=== PATIENT | male | born 1965 ===

== ENCOUNTER 2020-06-08 16:37 | Inpatient (IN) ==
[2020-06-08] MEDS ORDERED: hydrALAZINE 20 MG/1 ML VIAL IV ONE (19:49)
[2020-06-08] MEDS ORDERED: hydrALAZINE 20 MG/1 ML VIAL IV PRN (19:49)
[2020-06-08] MEDS ORDERED: GLUCAGON 1 MG VIAL IM PRN ×2 (19:55→19:57)
[2020-06-08] MEDS ORDERED: DEXTROSE 50% 25 GM/50 ML VIAL IV PRN (19:57)
[2020-06-08] MEDS ORDERED: ONDANSETRON 4 MG/2 ML VIAL IV PRN (19:57)
[2020-06-08] MEDS ORDERED: ACETAMINOPHEN 325 MG TABLET PO PRN (19:57)
[2020-06-08] MEDS: DEXTROSE 50% 25 GM/50 ML VIAL IV PRN ×2 (20:14→22:38)
[2020-06-08] MEDS: ENOXAPARIN 30 MG/0.3 ML SYRINGE SUBCUT SCH (22:38)
[2020-06-08] MEDS: DEXTROSE 5% NACL 0.45% 1,000 ML IV SCH (22:39)
[2020-06-09] MEDS: DEXTROSE 50% 25 GM/50 ML VIAL IV PRN ×10 (00:17→20:57)
[2020-06-09 02:36] LABS: Bacteria,Urine Moderate /HPF (Few); Bilirubin,Urine Negative (Negative); Blood, Urine Small mg/dL (Negative); Glucose,Urine (UA) 50 mg/dL (Negative); Ketones,Urine Negative (Negative); Nitrite,Urine Negative (Negative); Protein,Urine >=500 MG/DL; RBC,Urine 4 /HPF (0-4); Squamous Epithelial Cell,Urine Occasional /HPF (0-10); Urine Appearance CLOUDY (Clear); Urine Color Yellow (Yellow); Urine Specific Gravity 1.014 (1.001-1.035); Urine Urobilinogen < 2.0 EU/DL (0.2-1.0); WBC,Urine 14 /HPF (0-6)
[2020-06-09 03:45] LABS: Protein/Creatinine Ratio,Urine 7.1 RATIO
[2020-06-09] MEDS: DEXTROSE 10% 1,000 ML IV SCH ×2 (05:00→21:34)
[2020-06-09 05:56] LABS: Basophils % 0.4 % (0.0-0.8); Eosinophils # 0.2 10*3/uL (0.0-0.87); Eosinophils % 1.4 % (0.00-10.9); Hematocrit 23.6 VOL% (42.0-52.0); Immature Granulocytes % 1.2 %; Immature Granulocytes Absolute 0.13 #; Lymphocytes # 0.7 10*3/uL (1.4-4.0); Lymphocytes % 5.9 % (21.2-54.2); Mean Corpuscular HGB Conc 33.9 GM/DL (32-36); Mean Corpuscular Volume 91.1 FL (87-102); Mean Platelet Volume 9.4 FL (9.6-12.0); Monocytes % 8.3 % (1.7-12.7); Neutrophils % 82.8 % (38.7-73.9); Platelet Count 164 T/CUMM (130-400); Red Blood Count 2.59 MC/CUMM (3.8-5.5); Red Cell Distribution Width 13.6 % (9.3-17.3); White Blood Count 11.3 T/CUMM (4-12)
[2020-06-09 06:20] LABS: Albumin 1.9 G/DL (3.4-5.0); Bilirubin,Total 0.8 MG/DL (0.2-1.0); Calcium 6.9 MG/DL (8.5-10.1); Osmolality,Calculated 283.5 MOS/KG (273-304); Total Protein 5.7 G/DL (6.4-8.3)
[2020-06-09] MEDS: DEXTROSE 5% NACL 0.45% 1,000 ML IV SCH (07:41)
[2020-06-09] MEDS: PANTOPRAZOLE 40 MG TABLET PO SCH (09:49)
[2020-06-09] MEDS: hydrALAZINE 25 MG TABLET PO SCH ×3 (11:43→21:30)
[2020-06-09] MEDS ORDERED: POTASSIUM CHLORIDE 20 MEQ/15 ML UDCUP PO ONE (18:11)
[2020-06-09] MEDS: ENOXAPARIN 30 MG/0.3 ML SYRINGE SUBCUT SCH (21:30)
[2020-06-10 05:56] LABS: Basophils % 0.2 % (0.0-0.8); Eosinophils # 0.3 10*3/uL (0.0-0.87); Eosinophils % 2.2 % (0.00-10.9); Hematocrit 26.9 VOL% (42.0-52.0); Hemoglobin 9.2 GM/DL (14.0-18.0); Immature Granulocytes % 0.8 %; Immature Granulocytes Absolute 0.12 #; Lymphocytes % 6.7 % (21.2-54.2); Mean Corpuscular HGB Conc 34.2 GM/DL (32-36); Mean Corpuscular Volume 91.8 FL (87-102); Mean Platelet Volume 10.1 FL (9.6-12.0); Monocytes % 8.9 % (1.7-12.7); Neutrophils % 81.2 % (38.7-73.9); Platelet Count 227 T/CUMM (130-400); Red Blood Count 2.93 MC/CUMM (3.8-5.5); Red Cell Distribution Width 13.4 % (9.3-17.3); White Blood Count 14.3 T/CUMM (4-12)
[2020-06-10 06:26] LABS: Calcium 7.1 MG/DL (8.5-10.1); Osmolality,Calculated 276.2 MOS/KG (273-304)
[2020-06-10] MEDS: DEXTROSE 10% 1,000 ML IV SCH (08:21)
[2020-06-10] MEDS: SODIUM BICARB INJ 100 MEQ in DEXTROSE 5% 1,000 ML IV SCH ×2 (09:19→21:58)
[2020-06-10] MEDS: hydrALAZINE 25 MG TABLET PO SCH ×3 (09:21→21:57)
[2020-06-10] MEDS: PANTOPRAZOLE 40 MG TABLET PO SCH (09:22)
[2020-06-10] MEDS: ENOXAPARIN 30 MG/0.3 ML SYRINGE SUBCUT SCH (21:57)
[2020-06-11 05:36] LABS: Basophils % 0.3 % (0.0-0.8); Eosinophils # 0.2 10*3/uL (0.0-0.87); Eosinophils % 1.8 % (0.00-10.9); Hematocrit 23.2 VOL% (42.0-52.0); Immature Granulocytes Absolute 0.11 #; Lymphocytes # 0.8 10*3/uL (1.4-4.0); Lymphocytes % 7.8 % (21.2-54.2); Mean Corpuscular HGB Conc 34.5 GM/DL (32-36); Mean Platelet Volume 9.3 FL (9.6-12.0); Monocytes % 11.7 % (1.7-12.7); Neutrophils % 77.4 % (38.7-73.9); Platelet Count 182 T/CUMM (130-400); Red Blood Count 2.55 MC/CUMM (3.8-5.5); Red Cell Distribution Width 13.2 % (9.3-17.3); White Blood Count 10.8 T/CUMM (4-12)
[2020-06-11 06:23] LABS: Calcium 7.3 MG/DL (8.5-10.1); Osmolality,Calculated 272.8 MOS/KG (273-304)
[2020-06-11] MEDS ORDERED: POTASSIUM CHLORIDE 20 MEQ TABLET PO PRN (06:55)
[2020-06-11] MEDS: SODIUM BICARB INJ 100 MEQ in DEXTROSE 5% 1,000 ML IV SCH (07:04)
[2020-06-11] MEDS: hydrALAZINE 25 MG TABLET PO SCH ×3 (08:17→21:19)
[2020-06-11] MEDS: PANTOPRAZOLE 40 MG TABLET PO SCH (08:17)
[2020-06-11] MEDS: SODIUM BICARB INJ 150 MEQ in DEXTROSE 5% 850 ML IV SCH (16:21)
[2020-06-11] MEDS: ENOXAPARIN 30 MG/0.3 ML SYRINGE SUBCUT SCH (21:19)
[2020-06-12 06:17] LABS: Basophils % 0.2 % (0.0-0.8); Eosinophils # 0.1 10*3/uL (0.0-0.87); Eosinophils % 1.1 % (0.00-10.9); Hematocrit 20.6 VOL% (42.0-52.0); Hemoglobin 7.3 GM/DL (14.0-18.0); Immature Granulocytes % 0.8 %; Immature Granulocytes Absolute 0.09 #; Lymphocytes # 0.8 10*3/uL (1.4-4.0); Lymphocytes % 7.1 % (21.2-54.2); Mean Corpuscular HGB Conc 35.4 GM/DL (32-36); Mean Corpuscular Volume 88.8 FL (87-102); Mean Platelet Volume 9.4 FL (9.6-12.0); Monocytes % 12.9 % (1.7-12.7); Neutrophils % 77.9 % (38.7-73.9); Platelet Count 170 T/CUMM (130-400); Red Blood Count 2.32 MC/CUMM (3.8-5.5); White Blood Count 10.7 T/CUMM (4-12)
[2020-06-12 06:45] LABS: Calcium 7.2 MG/DL (8.5-10.1); Osmolality,Calculated 275.8 MOS/KG (273-304)
[2020-06-12] MEDS: SODIUM BICARB INJ 150 MEQ in DEXTROSE 5% 850 ML IV SCH ×2 (08:08→18:30)
[2020-06-12] MEDS: hydrALAZINE 25 MG TABLET PO SCH ×2 (08:12→20:58)
[2020-06-12] MEDS: PANTOPRAZOLE 40 MG TABLET PO SCH (08:14)
[2020-06-12] MEDS ORDERED: SODIUM CHLORIDE 0.9% 1,000 ML IV PRN ×2 (08:29→08:30)
[2020-06-12] MEDS: ENOXAPARIN 30 MG/0.3 ML SYRINGE SUBCUT SCH (20:58)
[2020-06-13] MEDS: SODIUM BICARB INJ 150 MEQ in DEXTROSE 5% 850 ML IV SCH ×2 (01:28→21:07)
[2020-06-13 06:39] LABS: Calcium 6.9 MG/DL (8.5-10.1); Osmolality,Calculated 284.4 MOS/KG (273-304)
[2020-06-13] MEDS: PANTOPRAZOLE 40 MG TABLET PO SCH (09:10)
[2020-06-13] MEDS: hydrALAZINE 25 MG TABLET PO SCH ×2 (09:11→21:07)
[2020-06-13] MEDS: ENOXAPARIN 30 MG/0.3 ML SYRINGE SUBCUT SCH (21:07)
[2020-06-14 06:42] LABS: Basophils % 0.1 % (0.0-0.8); Eosinophils # 0.3 10*3/uL (0.0-0.87); Hematocrit 24.6 VOL% (42.0-52.0); Hemoglobin 8.6 GM/DL (14.0-18.0); Immature Granulocytes % 0.8 %; Immature Granulocytes Absolute 0.07 #; Lymphocytes # 0.8 10*3/uL (1.4-4.0); Mean Corpuscular Volume 89.1 FL (87-102); Mean Platelet Volume 9.7 FL (9.6-12.0); Monocytes % 13.4 % (1.7-12.7); Neutrophils % 72.7 % (38.7-73.9); Platelet Count 191 T/CUMM (130-400); Red Blood Count 2.76 MC/CUMM (3.8-5.5); Red Cell Distribution Width 13.2 % (9.3-17.3); White Blood Count 8.3 T/CUMM (4-12)
[2020-06-14 07:00] LABS: Calcium 6.7 MG/DL (8.5-10.1); Osmolality,Calculated 287.2 MOS/KG (273-304)
[2020-06-14] MEDS ORDERED: POTASSIUM CHLORIDE 20 MEQ TABLET PO ONE (08:32)
[2020-06-14] MEDS: hydrALAZINE 25 MG TABLET PO SCH ×2 (10:48→21:20)
[2020-06-14] MEDS: PANTOPRAZOLE 40 MG TABLET PO SCH (10:48)
[2020-06-14] MEDS: SODIUM BICARB INJ 150 MEQ in DEXTROSE 5% 850 ML IV SCH ×2 (10:49)
[2020-06-14] MEDS: ENOXAPARIN 30 MG/0.3 ML SYRINGE SUBCUT SCH (21:20)
[2020-06-15] MEDS: SODIUM BICARB INJ 150 MEQ in DEXTROSE 5% 850 ML IV SCH
[2020-06-15 06:01] LABS: Basophils % 0.1 % (0.0-0.8); Eosinophils # 0.4 10*3/uL (0.0-0.87); Eosinophils % 5.1 % (0.00-10.9); Hematocrit 26.4 VOL% (42.0-52.0); Hemoglobin 9.3 GM/DL (14.0-18.0); Immature Granulocytes % 0.6 %; Immature Granulocytes Absolute 0.05 #; Lymphocytes % 10.9 % (21.2-54.2); Mean Corpuscular HGB Conc 35.2 GM/DL (32-36); Mean Corpuscular Volume 89.2 FL (87-102); Mean Platelet Volume 9.1 FL (9.6-12.0); Monocytes % 10.1 % (1.7-12.7); Neutrophils % 73.2 % (38.7-73.9); Platelet Count 213 T/CUMM (130-400); Red Blood Count 2.96 MC/CUMM (3.8-5.5); Red Cell Distribution Width 12.9 % (9.3-17.3); White Blood Count 8.7 T/CUMM (4-12)
[2020-06-15] MEDS ORDERED: POTASSIUM CHLORIDE 10 MEQ TABLET PO ONE (07:59)
[2020-06-15] MEDS: hydrALAZINE 25 MG TABLET PO SCH (08:28)
[2020-06-15] MEDS: PANTOPRAZOLE 40 MG TABLET PO SCH (08:28)
[2020-06-15] MEDS ORDERED: SODIUM BICARBONATE 650 MG TABLET PO SCH (17:00)
[2020-06-15 17:26] VITALS: BP 166/89
== END 2020-06-15 18:30 | disposition home or self-care (01) | DRG 684 ==
LOC: N.4E → SUATTDRO 19:58
PROVIDERS: ADMIT Internal Medicine; ATTEND Internal Medicine

== ENCOUNTER 2020-07-09 15:47 | Inpatient (IN) ==
[2020-07-09] MEDS ORDERED: PNEUMOCOCCAL VACCINE (13 VALENT) 0.5 ML SYRINGE IM ONE (18:15)
[2020-07-09] MEDS ORDERED: INFLUENZA VIRUS VACCINE 0.5 ML SYRINGE IM ONE (18:15)
[2020-07-09] MEDS ORDERED: DEXTROSE 50% 25 GM/50 ML VIAL IV PRN (19:02)
[2020-07-09] MEDS ORDERED: ONDANSETRON 4 MG/2 ML VIAL IV PRN (19:02)
[2020-07-09] MEDS ORDERED: GLUCAGON 1 MG VIAL IM PRN (19:02)
[2020-07-09 19:35] LABS: Basophils # 0.1 10*3/uL (0.0-0.2); Basophils % 0.3 % (0.0-0.8); Eosinophils # 0.4 10*3/uL (0.0-0.87); Eosinophils % 2.3 % (0.00-10.9); Hematocrit 23.3 VOL% (42.0-52.0); Hemoglobin 8.1 GM/DL (14.0-18.0); Immature Granulocytes % 6.2 %; Immature Granulocytes Absolute 0.94 #; Lymphocytes % 6.4 % (21.2-54.2); Mean Corpuscular HGB Conc 34.8 GM/DL (32-36); Mean Corpuscular Volume 88.6 FL (87-102); Monocytes % 7.1 % (1.7-12.7); Neutrophils % 77.7 % (38.7-73.9); Platelet Count 195 T/CUMM (130-400); Red Blood Count 2.63 MC/CUMM (3.8-5.5); Red Cell Distribution Width 14.5 % (9.3-17.3); White Blood Count 15.2 T/CUMM (4-12)
[2020-07-09 19:38] LABS: PT Patient Result 11.1 SECS (9.8-11.9)
[2020-07-09 19:53] LABS: Alanine Aminotransferase < 9 U/L (16-61); Albumin 2.3 G/DL (3.4-5.0); Alkaline Phosphatase 80 U/L (45-117); Aspartate Amino Transferase 13 U/L (0-37); Bilirubin,Total < 0.39 MG/DL (0.2-1.0); Blood Urea Nitrogen 77 MG/DL (7-18); Calcium 6.2 MG/DL (8.5-10.1); Estimated Glom Filtration Rate 3 ML/MIN; Glucose 104 MG/DL (74-106); Osmolality,Calculated 295.8 MOS/KG (273-304); Total Protein 7.4 G/DL (6.4-8.3)
[2020-07-09 20:15] LABS: Eosinophils 1 % (0-10); Lymphocytes 11 % (20-55); Segmented Neutrophils 85 % (50-85); Total Cells Counted 100
[2020-07-09 20:16] LABS: Toxic Granulation 2+
[2020-07-09 20:17] LABS: Anisocytosis 1+; Platelet Estimate Normal
[2020-07-09 20:19] LABS: Folate 6.3 NG/ML (5.4-24.0); Vitamin B12 411 PG/ML (211-911)
[2020-07-09 20:48] LABS: Sedimentation Rate-Westergren 137 MM/HR (0-20)
[2020-07-09] MEDS: PANTOPRAZOLE 40 MG VIAL IV SCH (21:25)
[2020-07-09] MEDS: POTASSIUM CHLORIDE RIDER 10 MEQ in PREMIX 1 EACH IV PRN ×2 (21:49→23:43)
[2020-07-09] MEDS: SODIUM CHLORIDE 0.9% 1,000 ML IV SCH (21:49)
[2020-07-10] MEDS: INSULIN LISPRO 100 UNIT/ML SUBCUT SCH ×5 (02:18→21:07)
[2020-07-10 02:52] LABS: Basophils % 0.3 % (0.0-0.8); Eosinophils # 0.4 10*3/uL (0.0-0.87); Eosinophils % 2.6 % (0.00-10.9); Hemoglobin 7.5 GM/DL (14.0-18.0); Immature Granulocytes % 6.3 %; Immature Granulocytes Absolute 0.88 #; Lymphocytes # 0.9 10*3/uL (1.4-4.0); Lymphocytes % 6.4 % (21.2-54.2); Mean Corpuscular HGB Conc 34.1 GM/DL (32-36); Mean Corpuscular Volume 90.5 FL (87-102); Mean Platelet Volume 9.5 FL (9.6-12.0); Monocytes % 8.5 % (1.7-12.7); NRBC # 0.02 10*3/uL; Neutrophils % 75.9 % (38.7-73.9); Platelet Count 187 T/CUMM (130-400); Red Blood Count 2.43 MC/CUMM (3.8-5.5); Red Cell Distribution Width 14.6 % (9.3-17.3)
[2020-07-10 02:57] LABS: Bilirubin,Total 0.5 MG/DL (0.2-1.0); Calcium 6.1 MG/DL (8.5-10.1); Osmolality,Calculated 299.7 MOS/KG (273-304); Risk Ratio 1.42; Thyroid Stimulating Hormone 1.5 uIU/ml (0.358-3.74); Total Protein 6.7 G/DL (6.4-8.3); VLDL CHOLESTEROL 11.4 MG/DL
[2020-07-10] MEDS: SODIUM CHLORIDE 0.9% 1,000 ML IV SCH (04:22)
[2020-07-10] MEDS: POTASSIUM CHLORIDE RIDER 10 MEQ in PREMIX 1 EACH IV PRN ×7 (04:22→16:57)
[2020-07-10 04:41] LABS: Eosinophils 4 % (0-10); Lymphocytes 6 % (20-55); Myelocytes 1 %; Segmented Neutrophils 84 % (50-85); Total Cells Counted 100
[2020-07-10 04:43] LABS: Hypochromasia Slight; Microcytosis 1+; Ovalocytes Slight; Platelet Estimate Adequate
[2020-07-10] MEDS: PANTOPRAZOLE 40 MG VIAL IV SCH ×2 (09:31→21:50)
[2020-07-10] MEDS: SODIUM BICARB INJ 50 MEQ in DEXTROSE 5% 1,000 ML IV SCH ×2 (10:45→21:16)
[2020-07-10] MEDS ORDERED: GLUCAGON 1 MG VIAL IM PRN (10:50)
[2020-07-10] MEDS ORDERED: DEXTROSE 50% 25 GM/50 ML VIAL IV PRN (10:50)
[2020-07-10 10:54] LABS: Hepatitis B Core IgM Quant 0.06 Index; Hepatitis B Surface Ag Quant < 0.10 Index; Hepatitis B Surface Ag Result Negative (Negative); Hepatitis C Virus Ab Quant 0.05 Index; Hepatitis C Virus Ab Result Negative (Negative)
[2020-07-10] MEDS ORDERED: ceFAZolin 1,000 MG in SYRINGE 1 EACH IV ONE (12:15)
[2020-07-10 13:37] LABS: Bilirubin,Urine Negative (Negative); Blood, Urine Negative (Negative); Glucose,Urine (UA) 150 mg/dL (Negative); Ketones,Urine Negative (Negative); Mucus,Urine Occasional /LPF (Occasional); Nitrite,Urine Negative (Negative); Protein,Urine >=500 MG/DL; RBC,Urine 2 /HPF (0-4); Squamous Epithelial Cell,Urine Occasional /HPF (0-10); Urine Appearance CLOUDY (Clear); Urine Color Yellow (Yellow); Urine Specific Gravity 1.014 (1.001-1.035); Urine Urobilinogen < 2.0 EU/DL (0.2-1.0); WBC,Urine 23 /HPF (0-6)
[2020-07-10] MEDS: VANCOMYCIN 50 MG/ML 60 ML/BOTTLE PO SCH ×2 (15:45→18:16)
[2020-07-11] MEDS: VANCOMYCIN 50 MG/ML 60 ML/BOTTLE PO SCH ×4 (00:12→18:50)
[2020-07-11] MEDS ORDERED: ceFAZolin 1,000 MG in SYRINGE 1 EACH IV ONE (06:00)
[2020-07-11 06:06] LABS: Basophils # 0.1 10*3/uL (0.0-0.2); Basophils % 0.4 % (0.0-0.8); Eosinophils # 0.4 10*3/uL (0.0-0.87); Eosinophils % 2.4 % (0.00-10.9); Hematocrit 20.3 VOL% (42.0-52.0); Hemoglobin 6.9 GM/DL (14.0-18.0); Immature Granulocytes % 5.2 %; Lymphocytes # 0.8 10*3/uL (1.4-4.0); Lymphocytes % 5.2 % (21.2-54.2); Mean Corpuscular Volume 90.6 FL (87-102); Mean Platelet Volume 9.7 FL (9.6-12.0); Neutrophils % 79.8 % (38.7-73.9); Platelet Count 153 T/CUMM (130-400); Red Blood Count 2.24 MC/CUMM (3.8-5.5); Red Cell Distribution Width 14.6 % (9.3-17.3); White Blood Count 15.3 T/CUMM (4-12)
[2020-07-11 06:34] LABS: Calcium 5.9 MG/DL (8.5-10.1); Osmolality,Calculated 295.1 MOS/KG (273-304)
[2020-07-11] MEDS ORDERED: MIDAZOLAM 2 MG/2 ML VIAL ONE (06:37)
[2020-07-11] MEDS ORDERED: fentaNYL 100 MCG/2 ML VIAL ONE (06:37)
[2020-07-11] MEDS ORDERED: SODIUM CHLORIDE 0.9% 100 ML IV ONE (06:37)
[2020-07-11] MEDS ORDERED: LIDOCAINE 2% 5 ML VIAL ONE (06:37)
[2020-07-11] MEDS ORDERED: propofoL 200 MG/20 ML VIAL IV ONE (06:37)
[2020-07-11] MEDS ORDERED: LIDOCAINE 1% 20 ML VIAL ONE (06:47)
[2020-07-11] MEDS ORDERED: HEPARIN 5,000 UNIT/1 ML VIAL ONE (06:47)
[2020-07-11] MEDS ORDERED: BUPIVACAINE MPF 0.25% 30 ML VIAL ONE (06:47)
[2020-07-11 07:08] LABS: Burr Cells Few; Ovalocytes Few; Platelet Estimate Adequate; Polychromasia Slight
[2020-07-11] MEDS: INSULIN LISPRO 100 UNIT/ML SUBCUT SCH ×4 (07:24→21:15)
[2020-07-11] MEDS ORDERED: SODIUM CHLORIDE 0.9% 250 ML IV ONE (07:47)
[2020-07-11] MEDS ORDERED: ceFAZolin 1,000 MG VIAL ONE (07:55)
[2020-07-11] MEDS ORDERED: TISSUE ADHESIVE 1 EACH APPLICATOR TOP ONE (08:16)
[2020-07-11] MEDS ORDERED: POTASSIUM CHLORIDE 20 MEQ TABLET PO ONE (09:51)
[2020-07-11] MEDS: POTASSIUM CHLORIDE RIDER 10 MEQ in PREMIX 1 EACH IV PRN ×2 (10:08→22:33)
[2020-07-11] MEDS: PANTOPRAZOLE 40 MG VIAL IV SCH ×2 (10:09→22:32)
[2020-07-11] MEDS: SODIUM BICARB INJ 50 MEQ in DEXTROSE 5% 1,000 ML IV SCH (10:27)
[2020-07-11] MEDS ORDERED: HEPARIN 10,000 UNIT/10 ML VIAL IV SCH (13:15)
[2020-07-11] MEDS: DEXTROSE 5% IV SCH (17:59)
[2020-07-11] MEDS: SODIUM ACETATE IV SCH (17:59)
[2020-07-11] MEDS: hydrALAZINE 20 MG/1 ML VIAL IV PRN (18:23)
[2020-07-12] MEDS: VANCOMYCIN 50 MG/ML 60 ML/BOTTLE PO SCH ×4 (00:53→17:20)
[2020-07-12] MEDS: POTASSIUM CHLORIDE RIDER 10 MEQ in PREMIX 1 EACH IV PRN ×4 (03:22→14:53)
[2020-07-12] MEDS: DEXTROSE 5% IV SCH (03:31)
[2020-07-12] MEDS: SODIUM ACETATE IV SCH (03:31)
[2020-07-12 06:23] LABS: Basophils % 0.3 % (0.0-0.8); Eosinophils # 0.3 10*3/uL (0.0-0.87); Eosinophils % 2.9 % (0.00-10.9); Hematocrit 22.1 VOL% (42.0-52.0); Hemoglobin 7.6 GM/DL (14.0-18.0); Immature Granulocytes % 2.5 %; Immature Granulocytes Absolute 0.27 #; Lymphocytes # 0.5 10*3/uL (1.4-4.0); Lymphocytes % 4.7 % (21.2-54.2); Mean Corpuscular HGB Conc 34.4 GM/DL (32-36); Mean Corpuscular Volume 87.4 FL (87-102); Mean Platelet Volume 9.8 FL (9.6-12.0); Monocytes % 8.4 % (1.7-12.7); Neutrophils % 81.2 % (38.7-73.9); Platelet Count 151 T/CUMM (130-400); Red Blood Count 2.53 MC/CUMM (3.8-5.5); White Blood Count 10.9 T/CUMM (4-12)
[2020-07-12 06:57] LABS: Calcium 5.7 MG/DL (8.5-10.1)
[2020-07-12] MEDS: PANTOPRAZOLE 40 MG VIAL IV SCH ×2 (08:43→21:27)
[2020-07-12] MEDS: INSULIN LISPRO 100 UNIT/ML SUBCUT SCH ×4 (08:44→21:28)
[2020-07-12] MEDS ORDERED: MAGNESIUM SULF RIDER 2 GM in PREMIX 1 EACH IV ONE (08:57)
[2020-07-12 08:59] LABS: Eosinophils 2 % (0-10); Lymphocytes 6 % (20-55); Platelet Estimate Adequate; Segmented Neutrophils 86 % (50-85); Total Cells Counted 100
[2020-07-12] MEDS: CALCIUM (CARBONATE) 500 MG TABLET PO SCH ×2 (12:21→21:27)
[2020-07-12] MEDS: hydrALAZINE 20 MG/1 ML VIAL IV PRN ×2 (13:32→21:28)
[2020-07-12] MEDS ORDERED: LOPERAMIDE 2 MG CAPSULE PO PRN (14:28)
[2020-07-13] MEDS: VANCOMYCIN 50 MG/ML 60 ML/BOTTLE PO SCH ×5 (00:12→23:34)
[2020-07-13] MEDS: SODIUM ACETATE IV SCH ×4 (00:23→21:48)
[2020-07-13] MEDS: DEXTROSE 5% IV SCH ×4 (00:23→21:48)
[2020-07-13] MEDS: POTASSIUM CHLORIDE RIDER 10 MEQ in PREMIX 1 EACH IV PRN ×8 (00:24→23:34)
[2020-07-13 05:25] LABS: Basophils % 0.3 % (0.0-0.8); Eosinophils # 0.2 10*3/uL (0.0-0.87); Hematocrit 21.7 VOL% (42.0-52.0); Hemoglobin 7.7 GM/DL (14.0-18.0); Immature Granulocytes Absolute 0.24 #; Lymphocytes # 0.4 10*3/uL (1.4-4.0); Lymphocytes % 3.8 % (21.2-54.2); Mean Corpuscular HGB Conc 35.5 GM/DL (32-36); Mean Corpuscular Volume 86.8 FL (87-102); Mean Platelet Volume 9.5 FL (9.6-12.0); Monocytes % 8.3 % (1.7-12.7); Neutrophils % 83.6 % (38.7-73.9); Platelet Count 151 T/CUMM (130-400); Red Cell Distribution Width 14.2 % (9.3-17.3); White Blood Count 11.7 T/CUMM (4-12)
[2020-07-13 05:46] LABS: Calcium 6.3 MG/DL (8.5-10.1); Osmolality,Calculated 280.2 MOS/KG (273-304)
[2020-07-13 05:53] LABS: Eosinophils 1 % (0-10); Hypochromasia 1+; Lymphocytes 3 % (20-55); Microcytosis 1+; Platelet Estimate Adequate; Segmented Neutrophils 87 % (50-85); Total Cells Counted 100
[2020-07-13 08:36] LABS: Hemoglobin A1 (Alkaline) 97.4 % (96.5-98.5); Hemoglobin A2 (Alkaline) 2.6 % (1.5-3.5)
[2020-07-13] MEDS: INSULIN LISPRO 100 UNIT/ML SUBCUT SCH ×4 (08:49→21:37)
[2020-07-13] MEDS: PANTOPRAZOLE 40 MG VIAL IV SCH ×2 (13:34→21:36)
[2020-07-13] MEDS: CALCIUM (CARBONATE) 500 MG TABLET PO SCH ×2 (13:36→21:36)
[2020-07-13] MEDS: hydrALAZINE 20 MG/1 ML VIAL IV PRN (13:57)
[2020-07-14] MEDS: POTASSIUM CHLORIDE RIDER 10 MEQ in PREMIX 1 EACH IV PRN ×10 (00:49→21:34)
[2020-07-14] MEDS: VANCOMYCIN 50 MG/ML 60 ML/BOTTLE PO SCH ×4 (05:13→23:14)
[2020-07-14 05:48] LABS: Basophils % 0.2 % (0.0-0.8); Eosinophils # 0.3 10*3/uL (0.0-0.87); Eosinophils % 2.5 % (0.00-10.9); Hematocrit 21.6 VOL% (42.0-52.0); Hemoglobin 7.7 GM/DL (14.0-18.0); Immature Granulocytes % 1.9 %; Lymphocytes # 0.6 10*3/uL (1.4-4.0); Lymphocytes % 5.6 % (21.2-54.2); Mean Corpuscular HGB Conc 35.6 GM/DL (32-36); Mean Corpuscular Volume 87.4 FL (87-102); Mean Platelet Volume 9.8 FL (9.6-12.0); Monocytes % 8.5 % (1.7-12.7); Neutrophils % 81.3 % (38.7-73.9); Platelet Count 134 T/CUMM (130-400); Red Blood Count 2.47 MC/CUMM (3.8-5.5); White Blood Count 10.8 T/CUMM (4-12)
[2020-07-14 06:11] LABS: Alanine Aminotransferase < 9 U/L (16-61); Albumin 1.7 G/DL (3.4-5.0); Alkaline Phosphatase 70 U/L (45-117); Aspartate Amino Transferase 8 U/L (0-37); Blood Urea Nitrogen 29 MG/DL (7-18); Calcium 6.7 MG/DL (8.5-10.1); Estimated Glom Filtration Rate 8 ML/MIN; Glucose 115 MG/DL (74-106); Osmolality,Calculated 270.5 MOS/KG (273-304); Total Protein 6.3 G/DL (6.4-8.3)
[2020-07-14] MEDS: INSULIN LISPRO 100 UNIT/ML SUBCUT SCH ×4 (07:28→21:28)
[2020-07-14] MEDS: DEXTROSE 5% IV SCH ×2 (07:29→17:52)
[2020-07-14] MEDS: SODIUM ACETATE IV SCH ×2 (07:29→17:52)
[2020-07-14] MEDS: CALCIUM (CARBONATE) 500 MG TABLET PO SCH ×2 (09:14→21:34)
[2020-07-14] MEDS: PANTOPRAZOLE 40 MG VIAL IV SCH ×2 (09:16→21:34)
[2020-07-15] MEDS: POTASSIUM CHLORIDE RIDER 10 MEQ in PREMIX 1 EACH IV PRN ×2 (00:02→01:12)
[2020-07-15] MEDS: DEXTROSE 5% IV SCH (05:38)
[2020-07-15] MEDS: SODIUM ACETATE IV SCH (05:38)
[2020-07-15] MEDS: VANCOMYCIN 50 MG/ML 60 ML/BOTTLE PO SCH ×2 (05:38→11:03)
[2020-07-15] MEDS: CALCIUM (CARBONATE) 500 MG TABLET PO SCH (09:02)
[2020-07-15] MEDS: PANTOPRAZOLE 40 MG VIAL IV SCH (09:02)
[2020-07-15 12:06] VITALS: BP 163/98
== END 2020-07-15 13:00 | disposition home or self-care (01) | DRG 674 ==
LOC: N.TELEN 17:20 → SUATTDRO 17:20
PROVIDERS: ADMIT Internal Medicine; ATTEND Internal Medicine